=== PATIENT | female | born 1995 | race Caucasian/White ===

== ENCOUNTER 2016-07-16 02:05 | Inpatient (IN) | payer BC ==
[2016-07-16 06:25] LABS: Hematocrit 37 % (35-47); Hemoglobin 12.8 g/dl (12.0-16.0); Mean Corpuscular HGB Conc 35 g/dl (31-36); Mean Corpuscular Hemoglobin 30 pg (27-31); Mean Corpuscular Volume 88 fL (80-97); Mean Platelet Volume 9 um3 (7.4-10.4); Red Blood Count 4.21 10^6/ul (4.0-5.4); Red Cell Distribution Width 13 % (10.5-15); White Blood Count 11.9 10^3/ul (3.5-10.8)
[2016-07-16] MEDS ORDERED: Glycerin ADULT SUPP PR PRN (07:24)
[2016-07-16] MEDS ORDERED: oxyCODONE/Acetamin 5/325 MG* TAB PO PRN (07:24)
[2016-07-16] MEDS ORDERED: Ibuprofen TAB* 600 MG PO PRN (07:24)
[2016-07-16] MEDS ORDERED: Witch Hazel PAD* JAR TOPICAL PRN (07:24)
[2016-07-16] MEDS ORDERED: Acetaminophen TAB* 325 MG PO PRN (07:24)
[2016-07-16] MEDS ORDERED: Dibucaine 1% 28.35 GM TUBE PR PRN (07:24)
[2016-07-16] MEDS ORDERED: Simethicone CHEW TAB* 80 MG PO SCH (08:30)
[2016-07-16] MEDS: Docusate CAP* 100 MG PO SCH ×3 (10:16→21:20)
[2016-07-17 06:50] LABS: Hematocrit 34 % (35-47); Hemoglobin 12.1 g/dl (12.0-16.0); Mean Corpuscular HGB Conc 35 g/dl (31-36); Mean Corpuscular Hemoglobin 31 pg (27-31); Mean Corpuscular Volume 88 fL (80-97); Mean Platelet Volume 8 um3 (7.4-10.4); Red Blood Count 3.88 10^6/ul (4.0-5.4); Red Cell Distribution Width 13 % (10.5-15); White Blood Count 10.1 10^3/ul (3.5-10.8)
--- NOTE | 2016-07-17 08:06 | PTEDU ---
Patient Name: FAWAD WALKER FAWAD WALKER selected video: Never Ever Shake a Baby to view on 07/17/2016 at 8:06:02 AM from [id number]
[2016-07-17] MEDS: Docusate CAP* 100 MG PO SCH ×3 (08:57→20:30)
[2016-07-17] MEDS ORDERED: Ferrous Gluconate TAB* 324 MG TAB PO SCH (09:00)
[2016-07-18 08:07] VITALS: BP 96/65
[2016-07-18] MEDS: Docusate CAP* 100 MG PO SCH (09:06)
== END 2016-07-18 10:46 | disposition home or self-care (01) | DRG 560 ==
LOC: MCHOBOUT 02:05 → MCHOB 03:34
PROVIDERS: ADMIT Midwife; ATTEND Midwife
PROC: 10907ZC Drainage of Amniotic Fluid, Therapeutic from Products of Conception, Via Natural or Artificial Opening (ICD-10-PCS; principal; 2016-07-16)
PROC: 10E0XZZ Delivery of Products of Conception, External Approach (ICD-10-PCS; 2016-07-16)
PROC: 4A1HX4Z Monitoring of Products of Conception, Cardiac Electrical Activity, External Approach (ICD-10-PCS; 2016-07-16)
DX: O69.81X0 Labor and delivery complicated by cord around neck, without compression, not applicable or unspecified (principal); O70.0 First degree perineal laceration during delivery; Z3A.39 39 weeks gestation of pregnancy; Z37.0 Single live birth
CPT/HCPCS: 36415; 85025; 86850; 86900; 86901; A9270-GY

== ENCOUNTER 2018-12-25 15:58 | Inpatient (IN) | payer BC, MEDICAID ==
[2018-12-25] MEDS ORDERED: Lactated Ringers 1000 ML Bag* 1,000 ML IV ONE (16:15)
[2018-12-25] MEDS ORDERED: Buffered Lidocaine 1% SYRIN* 1 ML/SYRINGE INTRADERM ONE (16:15)
[2018-12-25] MEDS ORDERED: Penicillin G Potassium IV* 5,000,000 UNITS in NS 0.9% 100 ML* 100 ML IVPB ONE (16:15)
--- NOTE | 2018-12-25 16:26 | HP ---
General Information - Reason for Visit Contractions - General Information Maternal Age: 21 Grav: 1 Para: 0 SAB: 0 IEA: 0 Estimated Due Date: 07/18/16 Determined By: LMP Maternal Blood Type and Rh: O Positive - Results this Serology/RPR Result: Non-Reactive Rubella Result: Immune HBsAg Result: Negative HIV Result: Negative GBS Culture Result: Negative Past Medical History Delivery History: Hx Uncomplicated Vaginal Delivery Pertinent Past Medical History: See Records Past Medical History Comment: Asthma- exercise-induced Pertinent Past Surgical History: See Records Past Surgical History Comment: [place] Tooth extraction - 2010 Excision of spitz nevus (L leg) - 1998 Pertinent Family History: Non-Contributory - Antepartal Records Antepartal Records: Reviewed, Complicated by: - HSV outbreak at 38 weeks, lesions well-healed and on prophylaxis. +THC on drug screen, Platelets 148 at 28 weeks, GBS positive status Review of Systems Constitutional: Uncomfortable CV Complaint: No Respiratory: Shortness of Breath: No Gastrointestinal: No Nausea/Vomiting, Normal Bowel Movement Genitourinary: No Dysuria, No Bleeding, No Leaking Fluid Musculoskeletal: No Epigastric Pain, Contractions Neurological: No Headache, No Visual Changes Movement: Normal Exam Allergies/Adverse Reactions: Allergies No Known Allergies Allergy (Verified 07/16/16 03:39) BP: 116/70, P: 64, R: 18, T: 97.4 - Exam Breast: Breast Exam Deferred CVA: No CVA Tenderness Extremities: No Edema Heart: Normal Rhythm/Heart Sounds HEENT: No Significant Findings Lungs: Clear Bilaterally Reflexes: DTR 2+ Thyroid: No Thyromegaly - Abdominal Exam Abdomen Exam: Non-Tender, Fundal Height Consistent with Dates - Ultrasound/Biophysical Profile Ultrasound Status: Not Done Targeted Exam Findings See L&D Outpatient Visit Provider Note for Findings: N/A Estimated Weight: 7.5 lb by nehemiah's Cervical Exam: 4cm Effacement: 80% Station: -1 Presenting Part: Vertex Membrane Status: Bulging Bleeding/Discharge: None EFM Findings - External Monitor Findings Baseline Heart Rate: 120 External Monitor Findings: Accelerations Present, No Pattern of Variable or Late Decelerations, Variability Moderate, Baseline Stable Contractions: Regular, Moderate, 45-90 Seconds Contraction Frequency: 1-3 min Assessment/Plan - Assessment A: IUP at 39 5/7 weeks Category I FHR, no evidence of metabolic acidemia GBS positive Early active labor H/o HSV outbreak at 38 weeks - no lesions on vulva, perineum, or rectum at this time P: Admit to inpatient Begin GBS prophylaxis per protocol Will assess old HSV lesions on pt's sacrum to determine if they need to be covered by a dressing during labor Plans unmedicated labor Reassess PRN Anticipate SVB - Obstetrical Risk Factors Obstetrical Risk Factors: GBS Positive - Plan Plan: Admit - Anticipate Vaginal Delivery - Date/Time of Admission Date of Admission: 12/25/18 Time of Admission: 16:15
[2018-12-25] MEDS ORDERED: Lactated Ringers 1000 ML Bag* 1,000 ML IV SCH ×2 (17:00→19:00)
--- NOTE | 2018-12-25 17:23 | PN ---
Progress Note - Progress Note Date of Service: 12/25/18 Note: Quick note: sacrum inspected due to HSV outbreak at 38 wks, old lesions vs scars noted. Tegaderm placed over sacrum as a precaution.
[2018-12-25 17:28] LABS: ABS Lymphocytes 1.9 10^3/ul (1.0-4.8); ABS Monocytes 0.5 10^3/ul (0-0.8); ABS Neutrophils 8.6 10^3/ul (1.5-7.7); Eosinophil % 0.1 %; Hematocrit 35 % (35-47); Hemoglobin 11.9 g/dL (12.0-16.0); Lymphocyte % 16.9 %; Mean Corpuscular HGB Conc 34 g/dL (31-36); Mean Corpuscular Hemoglobin 29 pg (27-31); Mean Corpuscular Volume 85 fL (80-97); Mean Platelet Volume 8.5 fL (7.4-10.4); Platelet Count 175 10^3/uL (150-450); Red Blood Count 4.11 10^6 /uL (3.70-4.87); Red Cell Distribution Width 14 % (10-15)
[2018-12-25 17:48] LABS: Urine Benzodiazepine Screen None Detected (None Detect); Urine Opiates Screen None Detected (None Detect)
[2018-12-25] MEDS ORDERED: Oxytocin in LR* 0 UNITS/0 ML BAG IVPB ONE (18:03)
[2018-12-25] MEDS ORDERED: Dibucaine 1% 28.35 GM TUBE PR PRN (18:27)
[2018-12-25] MEDS ORDERED: Witch Hazel PAD* JAR TOPICAL PRN (18:27)
[2018-12-25] MEDS ORDERED: Glycerin ADULT SUPP PR PRN (18:27)
[2018-12-25] MEDS ORDERED: Acetaminophen TAB* 325 MG PO PRN (18:27)
--- NOTE | 2018-12-25 18:35 | PROCNOTE ---
[facility] OB: Delivery Note - Delivery A Date of : 12/25/18 Time of : 18:10 [place] Sex: Female Score 1 Minute: 9 Score 5 Minutes: 10 Gestational Age in Weeks and Days at Delivery: 167 Weeks and 1 Days Delivery Method: Spontaneous Vaginal Labor: Spontaneous Did Patient attempt ?: N/A, No Previous Amniotic Fluid: Meconium Estimated Blood Loss: 200 Anesthesia/Analgesia: None Delivered By: Cari Yates - Nursery Level of Nursery: Regular/Bedside - Perineum Perineal Injury: Periurethral Laceration Perineal Injury Comment: no repair Perineal Repair: None - Events Delivery Events of Note: Partial Course of Antibiotics - for GBS prophylaxis - Additional Delivery Notes Additional Delivery Notes: at 39 5/7 weeks in spontaneous labor experienced SROM to meconium fluid at 1735. Began pushing at 1758. Slow, controlled delivery of infant head OA to AUDELIA with compound right hand at 1810. Posterior shoulder and arm delivered spontaneously prior to anterior shoulder, infant vigorous and crying before fully delivered. Female infant to mother's chest, pink, HR >110. Apgars 9 and 10. Cord was doubly clamped and cut by infant's father once pulsations ceased. Intact johanna placenta at 1818, fundus firm with massage. Perineum and vagina carefully inspected, small right periurethral abrasion noted, hemostatic and not repaired. EBL = 200 cc. Infant , mother and baby stable at time of note.
[2018-12-25] MEDS ORDERED: Simethicone TAB* 80 MG TAB.CHEW PO SCH (21:00)
[2018-12-25] MEDS ORDERED: Penicillin G Potassium IV* 2,500,000 UNITS in NS 0.9% 100 ML* 100 ML IVPB SCH (21:00)
[2018-12-25] MEDS: Ibuprofen TAB* 600 MG PO SCH (22:31)
[2018-12-26] MEDS: Docusate CAP* 100 MG PO SCH ×4 (03:17→21:29)
[2018-12-26 06:49] LABS: ABS Basophils 0.1 10^3/ul (0-0.2); ABS Eosinophils 0.1 10^3/ul (0-0.6); ABS Lymphocytes 2.6 10^3/ul (1.0-4.8); ABS Monocytes 0.9 10^3/ul (0-0.8); ABS Neutrophils 8.9 10^3/ul (1.5-7.7); Eosinophil % 0.5 %; Hematocrit 33 % (35-47); Hemoglobin 11.4 g/dL (12.0-16.0); Lymphocyte % 20.4 %; Mean Corpuscular HGB Conc 35 g/dL (31-36); Mean Corpuscular Hemoglobin 30 pg (27-31); Mean Corpuscular Volume 84 fL (80-97); Mean Platelet Volume 8.4 fL (7.4-10.4); Platelet Count 158 10^3/uL (150-450); Red Blood Count 3.87 10^6 /uL (3.70-4.87); Red Cell Distribution Width 14 % (10-15); White Blood Count 12.6 10^3/uL (3.5-10.8)
[2018-12-26] MEDS: Ibuprofen TAB* 600 MG PO SCH ×2 (08:16→14:27)
[2018-12-26] MEDS ORDERED: Ferrous Gluconate TAB* 324 MG TAB PO SCH (09:00)
[2018-12-26 21:36] VITALS: BP 108/61
[2018-12-27] MEDS: Ibuprofen TAB* 600 MG PO SCH ×3 (00:39→08:12)
[2018-12-27] MEDS: Docusate CAP* 100 MG PO SCH (08:13)
== END 2018-12-27 18:39 | disposition home or self-care (01) | DRG 560 ==
LOC: MCHOBOUT 15:58 → MCHOB 16:20
PROVIDERS: ADMIT Midwife; ATTEND Midwife
PROC: 10E0XZZ Delivery of Products of Conception, External Approach (ICD-10-PCS; principal; 2018-12-25)
DX: O99.824 Streptococcus B carrier state complicating childbirth (principal); Z37.0 Single live birth; O71.82 Other specified trauma to perineum and vulva; O99.52 Diseases of the respiratory system complicating childbirth; O77.0 Labor and delivery complicated by meconium in amniotic fluid; O32.2XX0 Maternal care for transverse and oblique lie, not applicable or unspecified; J45.909 Unspecified asthma, uncomplicated; Z3A.39 39 weeks gestation of pregnancy
CPT/HCPCS: 36415; 80307; 85025; 86850; 86900; 86901; A9270-GY; J2540

== ENCOUNTER 2020-08-21 17:16 | Inpatient (IN) ==
[2020-08-21] MEDS ORDERED: Lactated Ringers 1000 ml BAG 1,000 ML IV ONE (19:29)
[2020-08-21] MEDS ORDERED: Buffered Lidocaine 1% SYRIN 1 ml INTRADERM ONE (19:29)
[2020-08-21 19:55] LABS: Urine Benzodiazepine Screen None Detected (None Detect); Urine Cannabinoids Screen Presumptive Positive (None Detect); Urine Opiates Screen None Detected (None Detect)
[2020-08-21] MEDS ORDERED: Lactated Ringers 1000 ml BAG 1,000 ML IV SCH (20:00)
[2020-08-21] MEDS ORDERED: Witch Hazel PAD JAR TOPICAL PRN (23:31)
[2020-08-21] MEDS ORDERED: Glycerin ADULT 2.4 gm SUPP PR PRN (23:31)
[2020-08-21] MEDS ORDERED: Dibucaine 1% OINT 28.35 GM TUBE PR PRN (23:31)
[2020-08-22 08:00] LABS: ABS Lymphocytes 1.6 10^3/ul (1.0-4.8); ABS Monocytes 0.5 10^3/ul (0-0.8); Eosinophil % 0.1 %; Hematocrit 30 % (35-47); Hemoglobin 10.6 g/dL (12.0-16.0); Lymphocyte % 14.5 %; Mean Corpuscular HGB Conc 35 g/dL (31-36); Mean Corpuscular Hemoglobin 31 pg (27-31); Mean Corpuscular Volume 88 fL (80-97); Mean Platelet Volume 8.6 fL (7.4-10.4); Platelet Count 134 10^3/uL (150-450); Red Cell Distribution Width 13 % (10-15); White Blood Count 11.2 10^3/uL (3.5-10.8)
[2020-08-23 07:32] VITALS: BP 105/62
== END 2020-08-23 10:29 | disposition home or self-care (01) | DRG 560 ==
LOC: MCHOBOUT 17:16 → MCHOB 17:34
PROVIDERS: ADMIT Midwife; ATTEND Midwife